=== PATIENT | female | born 1970 | race Hispanic/Latino ===

== ENCOUNTER 2017-07-26 17:58 | Inpatient (IN) | payer OTHER ==
[~2017-07-26] VITALS: Ht 165.1 cm; Wt 65.8 kg
[2017-07-26] MEDS ORDERED: SODIUM CHLORIDE 0.9% 1000ML 1,000 ML IV STA (18:02)
[2017-07-26] MEDS ORDERED: AZITHROMYCIN 500MG/NS 250 ML 250 ML IV STA (18:02)
[2017-07-26 18:35] LABS: BASOPHILS % 0.2 % (0.0-1.0); EOSINOPHILS % 0.1 % (0.0-6.0); HEMATOCRIT 32.4 % (34.2-44.1); HEMOGLOBIN 11.2 g/dL (12.0-16.0); LYMPHOCYTES % 9.8 % (18.0-39.1); MEAN CORPUSCULAR HEMOGLOBIN 28.9 pg (28-32); MEAN CORPUSCULAR HGB CONC 34.6 g/dL (31-35); MEAN CORPUSCULAR VOLUME 83.7 fL (81-99); MONOCYTES # (AUTO) 1.9 (0.2-0.8); MONOCYTES % 9.6 % (4.4-11.3); NEUTROPHILS # (AUTO) 15.7 (2.1-6.9); PLATELET COUNT 406 x10e3/uL (140-360); RED BLOOD COUNT 3.87 x10e6/uL (3.6-5.1); RED CELL DISTRIBUTION WIDTH 14.6 % (11.7-14.4)
[2017-07-26 18:35] LABS: COLOR,URINE YELLOW (YELLOW); LEUKOCYTE ESTERASE ,URINE 1+ (NEGATIVE)
[2017-07-26 18:36] LABS: BILIRUBIN,URINE NEGATIVE (NEGATIVE); CLARITY,URINE SL CLOUDY (CLEAR); KETONES,URINE NEGATIVE (NEGATIVE); NITRITE,URINE NEGATIVE (NEGATIVE); PROTEIN,URINE DIPSTICK NEGATIVE (NEGATIVE); URINE UROBILINOGEN 0.2 mg/dL (0.2 - 1)
--- NOTE | 2017-07-26 18:40 | Diagnostic Imaging Report ---
PROCEDURE: Frontal and lateral views of the chest. COMPARISON: None. INDICATIONS: sob, cough 1 week FINDINGS: Lines/tubes: None. Lungs/Pleura: The lungs are well inflated. Bibasilar opacities, right greater than left. There is no evidence of pulmonary edema. No pneumothorax. Heart and mediastinum: The heart and the mediastinum are normal. Bones: No acute bony abnormality. IMPRESSION: Right basilar opacity may represent pneumonia with possible pleural effusion in the appropriate clinical context. Dictated by: Brijesh Ramirez M.D. on 07/26/2017 at 18:40 Electronically approved by: Brijesh Ramirez M.D. on 07/26/2017 at 18:40
[2017-07-26 18:48] LABS: BACTERIA,URINE MANY /HPF; EPITHELIAL CELLS,URINE FEW /LPF; MUCUS,URINE FEW (RARE); WBC,URINE (MAN) 21-50 /HPF (0-5)
[2017-07-26 18:52] LABS: ALANINE AMINOTRANSFERASE 70 IU/L (0-55); ALBUMIN 2.5 g/dL (3.5-5.0); ALBUMIN/GLOBULIN RATIO 0.6 (0.8-2.0); ALKALINE PHOSPHATASE 137 IU/L (40-150); ANION GAP 14.7 mmol/L (8-16); BLOOD UREA NITROGEN 9 mg/dL (7-26); BUN/CREATININE RATIO 9 (6-25); CALCIUM 9.3 mg/dL (8.4-10.2); CARBON DIOXIDE 25 mmol/L (22-29); CHLORIDE 96 mmol/L (98-107); CREATINE KINASE 42 IU/L (29-168); CREATININE, SERUM 0.96 mg/dL (0.57-1.11); EST GLOMERULAR FILTRATION RATE > 60 ML/MIN (60-); GLUCOSE 100 mg/dL (74-118); LIPASE < 4 U/L (8-78); POTASSIUM 3.7 mmol/L (3.5-5.1); SODIUM 132 mmol/L (136-145)
[2017-07-26] MEDS: CEFTRIAXONE SOD 1 GM VIAL IM ONE ×2 (19:28→23:06)
[2017-07-26] MEDS: AZITHROMYCIN 500MG/NS 250 ML 250 ML IV SCH (19:30)
[2017-07-26] MEDS ORDERED: CEFTRIAXONE SOD 1 GM VIAL IV SCH (19:30)
[2017-07-26 19:52] LABS: LYMPHOCYTES % (MANUAL) 7 % (19-48); MONOCYTES % (MANUAL) 10 % (3.4-9.0); NEUTROPHILS % (MANUAL) 80 % (40-74); PLATELET ESTIMATE SLIGHTLY INCREASED; PLATELET MORPHOLOGY COMMENT NORMAL; RBC MORPHOLOGY COMMENT NORMAL
[2017-07-26] MEDS: SODIUM CHLORIDE 0.9% 1000ML 1,000 ML IV SCH (21:25)
[2017-07-26] MEDS: ALBUTEROL/IPRATROPIUM 3 ML NEB NEB SCH (21:45)
[2017-07-26] MEDS ORDERED: KETOROLAC TROMETHAMINE 30 MG/ML VIAL IV STA (22:43)
[2017-07-27] MEDS: ALBUTEROL/IPRATROPIUM 3 ML NEB NEB SCH ×3 (02:40→11:00)
[2017-07-27] MEDS ORDERED: SODIUM CHLORIDE 0.9% 1000ML 1,000 ML IV ONE (04:30)
[2017-07-27] MEDS: ACETAMINOPHEN 325 MG TAB PO PRN ×3 (04:37→23:39)
[2017-07-27 05:20] LABS: BASOPHILS % 0.1 % (0.0-1.0); HEMOGLOBIN 9.5 g/dL (12.0-16.0); LYMPHOCYTES # (AUTO) 1.4 (1.0-3.2); LYMPHOCYTES % 8.6 % (18.0-39.1); MEAN CORPUSCULAR HEMOGLOBIN 28.4 pg (28-32); MEAN CORPUSCULAR HGB CONC 33.9 g/dL (31-35); MEAN CORPUSCULAR VOLUME 83.6 fL (81-99); MONOCYTES # (AUTO) 1.3 (0.2-0.8); MONOCYTES % 8.3 % (4.4-11.3); NEUTROPHILS # (AUTO) 13.2 (2.1-6.9); NEUTROPHILS % 82.5 % (38.7-80.0); PLATELET COUNT 330 x10e3/uL (140-360); RED BLOOD COUNT 3.35 x10e6/uL (3.6-5.1); RED CELL DISTRIBUTION WIDTH 14.6 % (11.7-14.4)
[2017-07-27 05:34] LABS: ALANINE AMINOTRANSFERASE 61 IU/L (0-55); ALBUMIN 2.1 g/dL (3.5-5.0); ALBUMIN/GLOBULIN RATIO 0.5 (0.8-2.0); ALKALINE PHOSPHATASE 185 IU/L (40-150); ANION GAP 14.1 mmol/L (8-16); BLOOD UREA NITROGEN 9 mg/dL (7-26); BUN/CREATININE RATIO 11 (6-25); CALCIUM 8.4 mg/dL (8.4-10.2); CARBON DIOXIDE 22 mmol/L (22-29); CHLORIDE 101 mmol/L (98-107); CREATININE, SERUM 0.84 mg/dL (0.57-1.11); EST GLOMERULAR FILTRATION RATE > 60 ML/MIN (60-); GLUCOSE 117 mg/dL (74-118); POTASSIUM 4.1 mmol/L (3.5-5.1); SODIUM 133 mmol/L (136-145)
[2017-07-27] MEDS: SODIUM CHLORIDE 0.9% 1000ML 1,000 ML IV SCH ×2 (06:00→16:55)
[2017-07-27] MEDS ORDERED: WELLBUTRIN SR150 MG PO (06:17)
--- OUTSIDE RECORDS SUMMARY | 2017-07-27 08:57 | XMS REPORT ---
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 Allergies, Adverse Reactions, Alerts This patient has no known allergies or adverse reactions. Medications This patient has no known medications. Results Test Description Test Time Test Comments Text Results Atomic Results Result Comments CHEST [address] 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 COMPARISON: None. INDICATIONS: sob, cough 1 week FINDINGS : Lines/tubes: None. Lungs/Pleura: The lungs are well inflated. Bibasilar opacities, right greater than left. There is no evidence of pulmonary edema. No pneumothorax. Heart and mediastinum: The heart and the mediastinum are normal. Bones: No acute bony abnormality. IMPRESSION: Right basilar opacity may represent pneumonia with possible pleural effusion in the appropriate clinical context. Dictated by: Brijesh Liang M.D. on 07/26/2017 at 18:40 Electronically approved by: Brijesh Liang M.D. on 07/26/2017 at 18:40 Dictated By: BRIJESH LIANG MD 39 COPY TO: SHEFALI LOVE NP
[2017-07-27] MEDS: BENZONATATE 100 MG CAP PO SCH ×2 (09:28→19:20)
[2017-07-27] MEDS: IBUPROFEN 600 MG TAB PO PRN (13:38)
[2017-07-27] MEDS ORDERED: PIPER-TAZ 3.375 GM 50 ML IV SCH (14:00)
[2017-07-27] MEDS ORDERED: PIPER-TAZ 3.375 GM 3.375 GM/100 ML BAG IV SCH (14:00)
--- NOTE | 2017-07-27 15:04 | Diagnostic Imaging Report ---
EXAM: CT Chest, Abdomen and Pelvis WITH contrast INDICATION: \S\fever \[id number] \S\[id number] COMPARISON: None. TECHNIQUE: Chest, abdomen and pelvis were scanned utilizing a multidetector helical scanner from the lung apex to the pubic symphysis after administration of IV contrast. Coronal and sagittal reformations were obtained. Routine protocol was performed. Scan was performed when during portal venous phase. IV CONTRAST: 150 mL of Omnipaque 300 ORAL CONTRAST: Water COMPLICATIONS: None RADIATION DOSE: Total DLP: ... mGy*cm Estimated effective dose: (DLP x 0.015 x size factor) mSv CTDIvol has been reviewed. It is below the limits set by the Radiation Protocol Committee (RPC). FINDINGS: LINES and TUBES: None. LUNGS AND AIRWAYS: Right lower lobe consolidation containing multiple low attenuating areas which measure greater than simple fluid density (for example on coronal image 63). PLEURA: Small right and trace left pleural effusions. HEART AND MEDIASTINUM: The thyroid gland is normal. Borderline enlarged upper right paratracheal node measures 1 cm (series 2 image 14) The heart is normal in size.. There is no pericardial effusion. HEPATOBILIARY: Numerous hepatic cysts and tiny hypodensities which are too small to characterize but probably represent cysts. A 4.1 cm low attenuating lesion in segment 4A measures slightly greater than fluid density and may represent a proteinaceous or hemorrhagic cyst. No biliary ductal dilation. GALLBLADDER: No radio-opaque stones or sludge. No wall thickening. SPLEEN: No splenomegaly. PANCREAS: No focal masses or ductal dilatation. ADRENALS: No adrenal nodules KIDNEYS/URETERS: Kidneys enhance symmetrically. No hydronephrosis. 1 cm hypodensity in the inferior right renal pole is too small to characterize but probably a cyst. Lobulated kidneys. No stones. GI TRACT: No abnormal distention, wall thickening, or evidence of bowel obstruction. PELVIC ORGANS/BLADDER: Suggestion of a 3.3 cm isoattenuating lesion in the region of the endometrium (sagittal image 78). LYMPH NODES: Scattered nonspecific subcentimeter retroperitoneal lymph nodes. No lymph nodes of significance by CT size criteria. VESSELS: Unremarkable. PERITONEUM / RETROPERITONEUM: No free air or fluid. BONES: Unremarkable. SOFT TISSUES: Bilateral breast implants. IMPRESSION: 1. Right lower lobe consolidation is concerning for pneumonia in the appropriate clinical context. Low attenuating areas within this consolidation are nonspecific but may represent area of necrosis. An underlying mass is not excluded. 2. Small right and trace left pleural effusions. 3. Borderline enlarged upper right paratracheal lymph node. 4. Hepatic cysts and additional left hepatic 4.1 cm lesion likely represents a complicated cyst. Consider right upper quadrant for further characterization. 5. A 3.3 cm lesion in the region of the endometrial cavity may represent a submucosal fibroid or an endometrial lesion such as a polyp. Recommend further evaluation with pelvic ultrasound. Signed by: DR. Brijesh Ramirez MD on 07/27/2017 3:00 PM
[2017-07-27] MEDS: ALBUTEROL/IPRATROPIUM 3 ML NEB NEB PRN ×2 (15:13→22:55)
[2017-07-27 15:27] VITALS: BP 103/58
[2017-07-27] MEDS: ENOXAPARIN SOD INJ 40 MG/0.4 ML SYR SC SCH (16:55)
[2017-07-27 17:00] VITALS: BP 103/58
[2017-07-27] MEDS ORDERED: IOPAMIDOL 370 MG/ML 200 ML INFUS..BTL INJ ONE (18:09)
[2017-07-27] MEDS ORDERED: SODIUM CHLORIDE 0.9% 50ML 50 ML ONE (18:09)
[2017-07-27] MEDS ORDERED: VANCOMYCIN 1GM/NS 250 ML 250 ML IV ONE (19:00)
[2017-07-27 20:00] VITALS: BP 111/58
[2017-07-27] MEDS: AZITHROMYCIN 500MG/NS 250 ML 250 ML IV SCH (20:00)
[2017-07-27] MEDS ORDERED: MORPHINE SULFATE 2 MG/ML SYR ONE (20:15)
[2017-07-27] MEDS: MORPHINE SULFATE 4 MG/ML SYR IV PRN (20:26)
--- NOTE | 2017-07-27 20:52 | Consultation ---
DATE OF CONSULTATION: July 27, 2017 PULMONARY MEDICINE CONSULT REFERRING PHYSICIAN: Dr. Rey. PATIENT'S PRIMARY CARE DOCTOR: Dr. Cavanaugh. HISTORY: Ms. Rebecca Snow is a pleasant 47-year-old female with abnormal chest radiography. Patient was in her usual state of health recently without any symptoms and feeling great. Patient 1 week ago started to feel a little bit shortness of breath. However, it was a mild amount. Patient 2 days ago started to develop decreased appetite. She was having increasing cough. Patient was recently seen by her primary care doctor for possible pneumonia and was given antibiotics. Due to these worsening, she came to the emergency room. She had evaluation. Fevers were noted to 103.8 degrees temperature as an inpatient. Heart rate often 90s to 120s. Patient with an intermittent cough noted. It was elected, due to her chest x-ray findings of right basilar opacity, that she get a CT of the chest. Today she had CT of the chest done, and there was a large right lower lobe consolidation containing multiple low-attenuating areas pocketing with small pleural effusion on the right side. There was borderline enlarged upper right paratracheal node of 1 cm. There were multiple cyst-like lesions of the liver and 3.3 cm lesion in the region of the endometrial cavity which may be a fibroid or an endometrial lesion such as polyp. Also of note, the white count was 20,000 coming into the hospital. It is now down to 16,000. Patient also with some elevated LFTs. Globulin level was 4.0. Sodium 133, potassium 4.1, creatinine 0.8. I am consulted due to severe and atypical findings on the chest CT. PAST MEDICAL HISTORY: Breast augmentation. MEDICATIONS: Medication list as reviewed per record. ALLERGIES: NO KNOWN DRUG ALLERGIES. SOCIAL HISTORY: No alcohol, no drugs. Patient smoked from age 13 to 46, 1 pack per day. She only smoked about 1/2 of this duration, however, she says. 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 Patient is from [place], [place], where she lived for the first 30 years in an urban kind of environment. Patient thereafter moved to [facility] in [place]. Thereafter, patient has lived in [place] for the last 4 years. FAMILY HISTORY: Noncontributory. REVIEW OF SYSTEMS GENERALLY: No weight changes. OPHTHALMOLOGIC: No double vision. ENT: No dry mouth. PULMONARY: No asthma. CARDIAC: No heart attacks. GASTROINTESTINAL: No constipation. GENITOURINARY: No blood in the urine. NEUROLOGIC: No seizures. PSYCHIATRIC: No depression. DERMATOLOGIC: No rashes. PHYSICAL EXAMINATION VITAL SIGNS: Afebrile now. Vital signs per electronic record, reviewed. HEENT: Normocephalic, atraumatic. NECK: Supple. Throat midline. LUNGS: Bilateral air entry, decreased breath sounds at bases, increased egophony right base. CARDIOVASCULAR: S1 and S2. No murmurs, rubs or gallops. ABDOMINAL: Soft, nontender. EXTREMITIES: No clubbing, no cyanosis. There is no edema. INTEGUMENT: No rash, no purpura. LYMPH NODES: No lymphadenopathy in cervical chain, supraclavicular or axillary stations. LABS: Labs reviewed per record. IMPRESSION AND PLAN 1. Abnormal chest radiography, treat as severe typical pneumonia with early necrotization such as often seen with streptococcal species and anaerobes. 2. Abnormal chest radiography, treat as possible postobstructive pneumonia. 3. Abnormal chest radiography, with appearance disproportionate to patient appearance and patient not looking very toxic. Consideration for other indolent pathogens as aware. 4. Possible early pyogenic lung infection. 5. Former smoker, quit last year. 6. Demographic exposure, patient lived 30 years in [facility] with annual rainfall of 5 inches per year. 7. Febrile syndrome and leukocytosis consistent with some element of infection. 8. Elevated liver function tests, not otherwise specified. 9. Move to airborne isolation. Screen for mycobacterial disease. Screen for fungal diseases including coccidiomycosis. Patient will have continued antibiotics to cover for severe community-acquired pneumonia and postobstructive pneumonitis. If patient does not show rapid improvement, we will consider a bronchoscopy to inspect and rule out any airway obstructions. DVT prophylaxis is indicated. Serial chest radiography is indicated because if this pleural effusion enlarges or if large necrotization and cavity formation forms, the patient may actually be a candidate for surgical therapy/interventional therapy at a different time. For now, medical management of this complex condition is warranted. Continue to optimize nutrition as much as possible. Check HIV testing and check liver ultrasound. Thank you very much, Dr. Rey, for this consult. Do not hesitate to contact me if I could help in any way. Job#: [id number]
[2017-07-27] MEDS ORDERED: BENZONATATE 100 MG CAP PO SCH (21:00)
[2017-07-27] MEDS: TEMAZEPAM 15 MG CAP PO SCH (22:52)
[2017-07-27] MEDS: GUAIFENESIN/DEXTROMETHORPHAN LIQD 5 ML UDC NG PRN (22:52)
[2017-07-27] MEDS: PIPERACILLIN/TAZO 4.5 GM 50 ML IV SCH (23:39)
[2017-07-28] VITALS (9 sets, daily range): BP systolic 102–131; BP diastolic 56–72
[2017-07-28] MEDS: SODIUM CHLORIDE 0.9% 1000ML 1,000 ML IV SCH ×2 (04:51→07:32)
[2017-07-28] MEDS: PIPERACILLIN/TAZO 4.5 GM 50 ML IV SCH ×3 (06:06→18:08)
[2017-07-28] MEDS: GUAIFENESIN/DEXTROMETHORPHAN LIQD 5 ML UDC NG PRN ×3 (06:08→20:19)
[2017-07-28] MEDS: ACETAMINOPHEN 325 MG TAB PO PRN ×2 (07:32→20:19)
--- NOTE | 2017-07-28 08:05 | Diagnostic Imaging Report ---
EXAMINATION: CHEST SINGLE (PORTABLE) INDICATION: \S\pleural effusion, pyogenic infection \S\[id number] \S\0625 COMPARISON: 07/26/2017 FINDINGS: AP view TUBES and LINES: None. LUNGS and PLEURA: Lungs are well inflated. Increased right lung opacification. Small left pleural effusion, increased from prior exam. HEART AND MEDIASTINUM: The cardiomediastinal silhouette is enlarged. BONES AND SOFT TISSUES: No acute osseous lesion. Soft tissues are unremarkable. UPPER ABDOMEN: No free air under the diaphragm. IMPRESSION: Moderate to large right and small left pleural effusions, increased from prior exam. Underlying pneumonia in the right mid to lower lung field cannot be excluded. Signed by: Dr. Chase Kaiser MD on 07/28/2017 8:01 AM
[2017-07-28] MEDS: ALBUTEROL/IPRATROPIUM 3 ML NEB NEB PRN ×2 (08:10→19:55)
[2017-07-28 08:24] LABS: BASOPHILS # (AUTO) 0.1 (0.0-0.1); BASOPHILS % 0.2 % (0.0-1.0); EOSINOPHILS % 0.1 % (0.0-6.0); HEMATOCRIT 27.1 % (34.2-44.1); HEMOGLOBIN 9.1 g/dL (12.0-16.0); LYMPHOCYTES % 9.8 % (18.0-39.1); MEAN CORPUSCULAR HEMOGLOBIN 28.3 pg (28-32); MEAN CORPUSCULAR HGB CONC 33.6 g/dL (31-35); MEAN CORPUSCULAR VOLUME 84.4 fL (81-99); MONOCYTES # (AUTO) 1.5 (0.2-0.8); MONOCYTES % 7.2 % (4.4-11.3); NEUTROPHILS # (AUTO) 16.7 (2.1-6.9); PLATELET COUNT 392 x10e3/uL (140-360); RED BLOOD COUNT 3.21 x10e6/uL (3.6-5.1); RED CELL DISTRIBUTION WIDTH 15.1 % (11.7-14.4)
[2017-07-28 08:50] LABS: ANION GAP 11.9 mmol/L (8-16); BLOOD UREA NITROGEN 6 mg/dL (7-26); BUN/CREATININE RATIO 8 (6-25); CALCIUM 8.5 mg/dL (8.4-10.2); CARBON DIOXIDE 24 mmol/L (22-29); CHLORIDE 104 mmol/L (98-107); CREATININE, SERUM 0.73 mg/dL (0.57-1.11); EST GLOMERULAR FILTRATION RATE > 60 ML/MIN (60-); GLUCOSE 101 mg/dL (74-118); POTASSIUM 3.9 mmol/L (3.5-5.1); SODIUM 136 mmol/L (136-145)
[2017-07-28] MEDS: BENZONATATE 100 MG CAP PO SCH ×2 (09:00→22:22)
[2017-07-28 09:04] LABS: BILIRUBIN,DIRECT 0.4 mg/dL (0.0-0.5)
[2017-07-28 10:21] LABS: INR 1.44; PROTHROMBIN TIME 16.5 seconds (11.9-14.5)
[2017-07-28 10:22] LABS: PARTIAL THROMBOPLASTIN TIME 37.8 seconds (23.8-35.5)
[2017-07-28] MEDS: IBUPROFEN 600 MG TAB PO PRN (10:29)
[2017-07-28 11:26] LABS: HIV 1&2 AB SCREEN NON-REACTIVE (NONREACTIVE)
[2017-07-28] MEDS: ENOXAPARIN SOD INJ 40 MG/0.4 ML SYR SC SCH (16:32)
[2017-07-28] MEDS: MORPHINE SULFATE 4 MG/ML SYR IV PRN (18:17)
[2017-07-28] MEDS ORDERED: MORPHINE SULFATE 2 MG/ML SYR ONE (18:18)
[2017-07-28] MEDS: AZITHROMYCIN 500MG/NS 250 ML 250 ML IV SCH (19:50)
[2017-07-28] MEDS: TEMAZEPAM 15 MG CAP PO SCH (22:22)
[2017-07-29 00:10] VITALS: BP 148/70
[2017-07-29] MEDS ORDERED: MORPHINE SULFATE 2 MG/ML SYR ONE ×3 (00:22→13:24)
[2017-07-29] MEDS: GUAIFENESIN/DEXTROMETHORPHAN LIQD 5 ML UDC NG PRN ×4 (00:24→19:06)
[2017-07-29] MEDS: MORPHINE SULFATE 4 MG/ML SYR IV PRN ×3 (00:24→13:33)
[2017-07-29] MEDS: PIPERACILLIN/TAZO 4.5 GM 50 ML IV SCH ×4 (00:24→17:56)
[2017-07-29] MEDS: ACETAMINOPHEN 325 MG TAB PO PRN ×4 (00:42→16:02)
--- NOTE | 2017-07-29 01:48 | Progress Note ---
DATE: July 28, 2017 PULMONARY MEDICINE PROGRESS NOTE SUBJECTIVE: Ms. Snow was seen and examined at bedside. She continues to have some cough. She is having mild amounts of green phlegm, but it is very difficult to expectorate. Usually her coughs are dry. Patient's chest x-ray with increasing right-sided pleural shadow with atelectasis versus effusion. She is eating some. REVIEW OF SYSTEMS: No bleeding, no rash. OBJECTIVE VITAL SIGNS: Afebrile, vital signs are noted per electronic record. GENERAL: No acute distress, alert, calm, although looking pale. HEENT: Normocephalic, atraumatic. NECK: Supple, throat midline. LUNGS: Bilateral air entry, but decreased very much on the right side. CARDIOVASCULAR: S1, S2. No murmurs, rubs or gallops. ABDOMEN: Soft, nontender. EXTREMITIES: No clubbing, no cyanosis, there is no edema. INTEGUMENT: No rash, no purpura. LABS: 3.9 potassium, 0.7 creatinine. 20 white count, 27 hematocrit, 393,000 platelets. INR is 1.44. IMPRESSIONS AND PLAN 1. Severe right-sided pneumonia. 2. Possible pyogenic thoracic infection with either early abscess formation versus early complex parapneumonic fluid formation. 3. Former smoker. 4. Possible increasing pleural effusion. Repeat a chest x-ray tomorrow. Consider getting ultrasound of thorax tomorrow. Repeat blood count and hopefully it will start to come down. Will await sputum to be sent in. There will be consideration for diagnostic thoracentesis if fluid is increasing on the right side, although optimally would also want to get stratification of some kind of negative sputum smear before we approach with bronchoscopy. Very guarded condition. Continue IV antibiotics. Job#: [id number] [id number]
--- NOTE | 2017-07-29 06:30 | Diagnostic Imaging Report ---
CHEST SINGLE (PORTABLE), 07/29/2017 5:00 AM Technique: CHEST SINGLE (PORTABLE) Comparison: Previous day Clinical history: Pleural effusion, pyogenic infection Findings: See Impression Impression: 1. Stable right basilar opacity related to right lower lobe pneumonia with small effusion. 2. Mild left basilar atelectasis or consolidation. 3. Stable cardiomediastinal silhouette, partially obscured. Signed by: Dr Dinora Calle MD on 07/29/2017 6:27 AM
[2017-07-29 07:01] LABS: BASOPHILS # (AUTO) 0.1 (0.0-0.1); BASOPHILS % 0.3 % (0.0-1.0); EOSINOPHILS # (AUTO) 0.2 (0.0-0.4); EOSINOPHILS % 0.9 % (0.0-6.0); HEMATOCRIT 25.8 % (34.2-44.1); HEMOGLOBIN 8.7 g/dL (12.0-16.0); LYMPHOCYTES # (AUTO) 1.9 (1.0-3.2); LYMPHOCYTES % 10.2 % (18.0-39.1); MEAN CORPUSCULAR HGB CONC 33.7 g/dL (31-35); MONOCYTES # (AUTO) 1.2 (0.2-0.8); MONOCYTES % 6.3 % (4.4-11.3); NEUTROPHILS # (AUTO) 15.1 (2.1-6.9); NEUTROPHILS % 81.4 % (38.7-80.0); PLATELET COUNT 354 x10e3/uL (140-360); RED BLOOD COUNT 3.11 x10e6/uL (3.6-5.1); RED CELL DISTRIBUTION WIDTH 15.2 % (11.7-14.4)
[2017-07-29 07:46] LABS: ALANINE AMINOTRANSFERASE 53 IU/L (0-55); ALBUMIN 1.8 g/dL (3.5-5.0); ALBUMIN/GLOBULIN RATIO 0.5 (0.8-2.0); ALKALINE PHOSPHATASE 158 IU/L (40-150); ANION GAP 11.9 mmol/L (8-16); BLOOD UREA NITROGEN 8 mg/dL (7-26); BUN/CREATININE RATIO 11 (6-25); CALCIUM 8.4 mg/dL (8.4-10.2); CARBON DIOXIDE 24 mmol/L (22-29); CHLORIDE 105 mmol/L (98-107); CREATININE, SERUM 0.76 mg/dL (0.57-1.11); EST GLOMERULAR FILTRATION RATE > 60 ML/MIN (60-); GLUCOSE 109 mg/dL (74-118); MAGNESIUM 1.3 MG/DL (1.3-2.1); POTASSIUM 3.9 mmol/L (3.5-5.1); SODIUM 137 mmol/L (136-145)
[2017-07-29 07:49] VITALS: BP 111/54
[2017-07-29] MEDS: BENZONATATE 100 MG CAP PO SCH (09:06)
[2017-07-29 11:54] VITALS: BP 105/51
[2017-07-29 16:00] VITALS: BP 123/64
[2017-07-29] MEDS: ENOXAPARIN SOD INJ 40 MG/0.4 ML SYR SC SCH (17:56)
[2017-07-29] MEDS: IBUPROFEN 600 MG TAB PO PRN (17:56)
--- NOTE | 2017-07-29 18:11 | Diagnostic Imaging Report ---
HISTORY: Elevated LFTs, pulmonary consolidation TECHNIQUE: Selected images from limited abdominal ultrasound provided for INTERPRETATION: COMPARISON: CT abdomen/pelvis 07/27/2017. Chest x-ray 07/26/2017 FINDINGS: Pancreas: Visualized portions are normal. No ductal dilatation. Liver: Measures 13.6 cm in sagittal dimension. The echotexture is normal. A cyst in the right lobe measures 4.7 x 3.7 x 3.8 cm and contains a single septation. Other cysts identified on CT are not visible sonographically. No solid mass. Portal Vein: Patent with hepatopetal flow on spectral Doppler interrogation. Portal vein diameter is 9 mm. Biliary Tree: No intrahepatic dilatation. Gallbladder: Present. No evidence of gallstone, gallbladder wall thickening, or pericholecystic fluid. CBD: 0.5 cm. Right Kidney: 11 cm in greatest length. The echotexture is normal. The cortex is lobulated. There is a cyst in the interpolar cortex measuring 10 x 13 x 12 mm. There is no collecting system dilatation or evidence of obstruction. No renal calculi evident. No adjacent free fluid or fluid collections. Visualized IVC and aorta are normal. There is no free fluid in the abdomen. A right pleural effusion is present. IMPRESSION: 1. Normal hepatic echotexture. No abnormalities of the pancreas. 2. Normal gallbladder and biliary tree. 3. Septated cyst in the right lobe of the liver. 4. Right pleural effusion. Signed by: Dr. Matheus Macias MD on 07/29/2017 6:08 PM
[2017-07-29 20:00] VITALS: BP 100/60
--- NOTE | 2017-07-30 09:06 | Discharge Summary ---
ADMITTING DIAGNOSIS: Severe consolidative pneumonia, under investigation. SECONDARY DIAGNOSES 1. Abnormal chest radiography, treated as severe typical pneumonia. 2. Abnormal chest radiography, possible postobstructive pneumonia. 3. Abnormal chest radiography, with disproportionate radiographic appearance, the patient's clinical appearance and consideration for indolent pathogens. 4. Possible early pyogenic lung infection, intraparenchymal versus pleural space infection. 5. Former smoker, quit last year. 6. Elevated liver function tests. HOSPITAL COURSE: Patient was admitted. Chest x-ray showed significant pneumonia and CT chest confirmed this with appearance of some coalesced areas more consistent with pocketing within the lungs which was suggestive of possible early neurotization. AFB sputum were sent ff and were pending with a possible bronchoscopy pending after some AFB negative cultures noted. Furthermore, patient had ultrasound of the chest to try to assess if surgical or interventional therapy was warranted on the outside, but of note, family elected to go to a different hospital. Patient was approved for transfer DISPOSITION: [facility], physician is Dr. Knight. FOLLOWUP: Will be back with Juan Antonio Cavanaugh, her PCP, after discharge. NUTRITION/DIET: Oral as tolerated. ACTIVITIES: As tolerated. MEDICATIONS AT DISCHARGE: Per medication reconciliation record and per receiving hospital as patient is still under acute car daily treatment by physicians. Greater than 30 minutes in direct care today for patient was critically ill, multi evaluation. Nothing refractory in his treatment. AMARA POMPA MD Job#: [id number]
== END 2017-07-29 20:59 | disposition short-term general hospital (02) | DRG 194 ==
LOC: ER 17:58 → ERHOLD 07-27 08:54 → MED/SURG3 07-27 15:04
PROVIDERS: ADMIT Internal Medicine; ATTEND Internal Medicine
DX: J18.9 Pneumonia, unspecified organism (principal); E87.1 Hypo-osmolality and hyponatremia; N39.0 Urinary tract infection, site not specified; K76.89 Other specified diseases of liver; D64.9 Anemia, unspecified; Z87.891 Personal history of nicotine dependence; R79.89 Other specified abnormal findings of blood chemistry
CPT/HCPCS: 36415; 71045; 71046; 71260; 74177; 76705; 80048; 80053; 80076; 81001; 82550; 82553; 82948; 83605; 83615; 83690; 83735; 84443; 84484; 85025; 85610; 85730; 86635; 87040; 87070; 87086; 87116; 87205; 87206; 87390; 93005; 94640; 96360; 96361; 96365; 96374; 99284; G0433; G0435; J0456; J0696; J1650; J1885; J2270; J2543; J3370; J7030; Q9967